=== PATIENT | male | born 1995 | race Caucasian/White ===

== ENCOUNTER 2018-10-11 08:06 | Emergency (ER) | payer MEDICAID ==
[~2018-10-11] VITALS: Ht 182.9 cm; Wt 68.4 kg
[~2018-10-11 08:06] MED LIST: ALBU8HFA PO; CEPH500C5 PO
[2018-10-11 08:10] VITALS: BP 125/71
[2018-10-11] MEDS ORDERED: triamcinolone acetonide 40mg/ml inj IM ONE (08:55)
[2018-10-11] MEDS ORDERED: diphenhydrAMINE 25mg capsule PO ONE (08:55)
[2018-10-11] MEDS ORDERED: DIPH25CA83 PO (09:10)
[2018-10-11] MEDS ORDERED: HYDR28CR14 TOP (09:10)
== END 2018-10-11 09:27 | disposition home or self-care (01) ==
LOC: ER 08:07
DX: R21 Rash and other nonspecific skin eruption (principal); F12.90 Cannabis use, unspecified, uncomplicated; Z59.0 Homelessness; Z56.0 Unemployment, unspecified; Z79.899 Other long term (current) drug therapy
CPT/HCPCS: 96372; 99283; J3301; Q0163

== ENCOUNTER 2018-10-23 09:49 | Emergency (ER) | payer MEDICAID ==
[~2018-10-23] VITALS: Ht 182.9 cm; Wt 68.2 kg
[~2018-10-23 09:49] MED LIST changes: +DIPH25CA83 PO; +HYDR28CR14 TOP
--- NOTE | 2018-10-23 10:06 | NUR ---
Patient presents to ED with multiple complaints, primarily "lymph node" swelling to right nipple, left groin, posterior right thigh, and swollen "lymph nodes" to bilateral sides of neck with onset of sore throat, patient states increase in lethargy and weakness x2 weeks.
[2018-10-23 10:42] VITALS: BP 121/77
== END 2018-10-23 10:44 | disposition home or self-care (01) ==
LOC: ER 09:49
DX: N63.10 Unspecified lump in the right breast, unspecified quadrant (principal); R59.0 Localized enlarged lymph nodes; F12.90 Cannabis use, unspecified, uncomplicated; Z56.0 Unemployment, unspecified; Z59.0 Homelessness; Z79.899 Other long term (current) drug therapy
CPT/HCPCS: 99281

== ENCOUNTER 2019-05-16 16:17 | Emergency (ER) | payer MEDICAID ==
[~2019-05-16] VITALS: Ht 177.8 cm; Wt 70.9 kg
[2019-05-16 16:28] VITALS: BP 117/68
[2019-05-16] MEDS ORDERED: triamcinolone acetonide 40mg/ml inj IM ONE (16:40)
== END 2019-05-16 16:53 | disposition home or self-care (01) ==
LOC: ER 16:18
DX: L23.7 Allergic contact dermatitis due to plants, except food (principal); F12.90 Cannabis use, unspecified, uncomplicated; Z59.0 Homelessness; Z56.0 Unemployment, unspecified; Z79.2 Long term (current) use of antibiotics; Z79.899 Other long term (current) drug therapy
CPT/HCPCS: 96372; 99283; J3301

== ENCOUNTER 2019-09-02 03:38 | Emergency (ER) | payer MEDICAID ==
[~2019-09-02] VITALS: Ht 177.8 cm; Wt 70.5 kg
[2019-09-02] MEDS ORDERED: LORazepam 2 mg/ml vial IM ONE (03:40)
[2019-09-02] MEDS ORDERED: haloperidol lactate 5mg/ml inj IM ONE (03:40)
[2019-09-02] MEDS ORDERED: diphenhydrAMINE 50 mg/ml inj IM ONE (03:40)
[2019-09-02] MEDS ORDERED: normal saline 1000ML IV soln IVB ONE (04:00)
[2019-09-02 04:37] LABS: BASOPHILS % (AUTO) 0.1 % (0-1); EOSINOPHILS # (AUTO) 0.2 X10'3 (0-0.9); EOSINOPHILS % (AUTO) 1.7 % (0-6); HEMATOCRIT 36.7 % (42.0-52.0); HEMOGLOBIN 11.8 g/dl (14.0-17.9); LYMPHOCYTES # (AUTO) 1.5 X10'3 (1.1-4.8); LYMPHOCYTES % (AUTO) 11.5 % (21-51); MEAN CORPUSCULAR HEMOGLOBIN 28.2 PG (27.0-31.0); MEAN CORPUSCULAR HGB CONC 32.3 g/dL (33.0-36.5); MEAN CORPUSCULAR VOLUME 87.4 FL (78-98); MEAN PLATELET VOLUME 8.4 FL (7.4-10.4); MONOCYTES # (AUTO) 0.8 X10'3 (0-0.9); MONOCYTES % (AUTO) 6.4 % (2-12); NEUTROPHILS # (AUTO) 10.6 X10'3 (1.8-7.7); NEUTROPHILS % (AUTO) 80.3 % (42-75); PLATELET COUNT 252 X10'3 (140-440); RED CELL DISTRIBUTION WIDTH 13.2 % (11.5-14.5); WHITE BLOOD COUNT 13.2 X10'3 (4.5-11.0)
[2019-09-02 04:45] LABS: URINE AMPHETAMINE SCREEN POSITIVE (Neg); URINE BARBITUATE SCREEN NEGATIVE (Neg); URINE BENZODIAZEPINES SCREEN NEGATIVE (Neg); URINE CANNABINOID SCREEN NEGATIVE (Neg); URINE COCAINE SCREEN NEGATIVE (Neg); URINE METHADONE SCREEN NEGATIVE (Neg); URINE OPIATE SCREEN POSITIVE (Neg); URINE PHENCYCLIDINE SCREEN NEGATIVE (Neg)
[2019-09-02 04:47] LABS: ALANINE AMINOTRANSFERASE 27 U/L (12-78); ALBUMIN 3.4 G/DL (3.4-5.0); ALBUMIN/GLOBULIN RATIO 1.1 (1.1-1.5); ALKALINE PHOSPHATASE 69 IU/L (46-116); ANION GAP 11 (8-16); ASPARTATE AMINO TRANSFERASE 32 U/L (10-37); BILIRUBIN,TOTAL 0.3 MG/DL (0.1-1.0); BLOOD UREA NITROGEN 20 MG/DL (7-18); BUN/CREATININE RATIO 15.5 (5.4-32.0); CALCIUM 8.3 MG/DL (8.5-10.1); CHLORIDE 108 MMOL/L (99-107); CREATININE 1.29 MG/DL (0.60-1.10); GLUCOSE 155 MG/DL (70-104); POTASSIUM 3.2 MMOL/L (3.5-5.1); SODIUM 143 MMOL/L (135-145); TOTAL CARBON DIOXIDE 24.2 MMOL/L (24-32); TOTAL PROTEIN 6.4 G/DL (6.4-8.2); eGFR 68 ML/MIN
[2019-09-02 04:49] LABS: CREATINE KINASE 640 U/L (39-308); ETHANOL < 0.010 GM/DL (0.0-0.010)
[2019-09-02] MEDS ORDERED: normal saline 1000ml 1,000 ML IV ONE (04:55)
--- NOTE | 2019-09-02 06:50 | NUR ---
Pt currently soundly sleeping, respirations remain even and unlabored and in no observable distress.
--- NOTE | 2019-09-02 09:45 | NUR ---
Attempted to wake pt up. Pt unwilling to answer questions and takes blanket and covers head as pt wanting to go back to sleep.
--- NOTE | 2019-09-02 11:25 | NUR ---
PT IS AWAKE, ALERT AND ORIENTED X3, "I AM READY TO GO HOME", CALLED GEOVANNY, MOTHER, AT [phone], SHE WILL BE HERE IN FEW MINUTES TO PICK PT UP FROM [facility]
--- NOTE | 2019-09-02 11:37 | NUR ---
PT OUT TO LOBBY IN WHEELCHAIR, ABLE TO AMB WITHOUT ASSIST, GAIT SLIGHTLY UNSTEADY, GAVE PT SHIRT
[2019-09-02 11:38] VITALS: BP 137/65
== END 2019-09-02 11:42 | disposition home or self-care (01) ==
LOC: ER 03:39
DX: R00.0 Tachycardia, unspecified (principal); T50.905A Adverse effect of unspecified drugs, medicaments and biological substances, initial encounter; R41.82 Altered mental status, unspecified; F12.90 Cannabis use, unspecified, uncomplicated; F15.90 Other stimulant use, unspecified, uncomplicated; Z59.0 Homelessness; Z56.0 Unemployment, unspecified; Z79.2 Long term (current) use of antibiotics; Z79.899 Other long term (current) drug therapy; Y92.89 Other specified places as the place of occurrence of the external cause
CPT/HCPCS: 36415; 80053; 80305; 80320; 82550; 85025; 96360; 96372; 99285; J1200; J1630; J2060; J7030

== ENCOUNTER 2019-12-25 15:11 | Emergency (ER) | payer MEDICAID ==
[~2019-12-25] VITALS: Ht 175.3 cm; Wt 63.6 kg
[~2019-12-25 15:11] MED LIST changes: -CEPH500C5 PO
[2019-12-25 15:25] VITALS: BP 125/80
== END 2019-12-25 17:57 | disposition home or self-care (01) ==
LOC: ER 15:11
DX: S70.211A Abrasion, right hip, initial encounter (principal); S80.211A Abrasion, right knee, initial encounter; S90.811A Abrasion, right foot, initial encounter; S40.812A Abrasion of left upper arm, initial encounter; S40.811A Abrasion of right upper arm, initial encounter; S80.812A Abrasion, left lower leg, initial encounter; S80.811A Abrasion, right lower leg, initial encounter; F12.90 Cannabis use, unspecified, uncomplicated; F15.90 Other stimulant use, unspecified, uncomplicated; R21 Rash and other nonspecific skin eruption; Z59.0 Homelessness; Z56.0 Unemployment, unspecified; Z79.899 Other long term (current) drug therapy; V29.88XA Motorcycle rider (driver) (passenger) injured in other specified transport accidents, initial encounter; Y93.89 Activity, other specified; Y92.488 Other paved roadways as the place of occurrence of the external cause; Y99.8 Other external cause status
CPT/HCPCS: 73110; 73610; 99284

== ENCOUNTER 2020-08-09 16:31 | Emergency (ER) | payer MEDICAID ==
[~2020-08-09] VITALS: Ht 180.3 cm; Wt 70.5 kg
[2020-08-09 16:37] VITALS: BP 116/67
[2020-08-09] MEDS ORDERED: SULF1TAB49 PO (17:34)
[2020-08-09] MEDS ORDERED: TETanus/Pertussis (Acell)/Diphther VAC/PF (Tdap-Adult) 0.5ml syringe IMVAC ONE (17:35)
[2020-08-09] MEDS ORDERED: acetaminophen 325mg tablet PO ONE (17:35)
[2020-08-09] MEDS ORDERED: sulfamethoxazole/trimethoprim DS (800/160mg) tablet PO ONE (17:35)
== END 2020-08-09 18:00 | disposition home or self-care (01) ==
LOC: ER 16:31
DX: L03.115 Cellulitis of right lower limb (principal); Z59.0 Homelessness; Z56.0 Unemployment, unspecified; F12.10 Cannabis abuse, uncomplicated; F15.10 Other stimulant abuse, uncomplicated
CPT/HCPCS: 99283

== ENCOUNTER 2020-09-20 10:39 | Emergency (ER) | payer MEDICAID ==
[~2020-09-20] VITALS: Ht 180.3 cm; Wt 69.8 kg
[2020-09-20 11:09] VITALS: BP 103/45
--- NOTE | 2020-09-20 13:58 | NUR ---
PT CALLED REGARDING RAPID STREP RESULTS, NO ANSWER, MESSAGE LEFT
== END 2020-09-20 12:21 | disposition home or self-care (01) ==
LOC: ER 10:40
DX: J02.9 Acute pharyngitis, unspecified (principal); Z20.822 Contact with and (suspected) exposure to COVID-19; M54.2 Cervicalgia; H92.01 Otalgia, right ear; F17.200 Nicotine dependence, unspecified, uncomplicated; F12.90 Cannabis use, unspecified, uncomplicated; Z56.0 Unemployment, unspecified; Z59.0 Homelessness; Z79.899 Other long term (current) drug therapy
CPT/HCPCS: 87077; 87081; 87635; 87880; 99283; C9803

== ENCOUNTER 2020-09-23 00:04 | Emergency (ER) | payer MEDICAID ==
[~2020-09-23] VITALS: Ht 180.3 cm; Wt 68.4 kg
[2020-09-23 00:13] VITALS: BP 118/67
== END 2020-09-23 02:40 | disposition left against medical advice (07) ==
LOC: ER 00:05
DX: L03.314 Cellulitis of groin (principal); Z53.21 Procedure and treatment not carried out due to patient leaving prior to being seen by health care provider

== ENCOUNTER 2022-09-10 10:23 | Emergency (ER) | payer MEDICAID ==
[~2022-09-10] VITALS: Ht 180.3 cm; Wt 64.0 kg
[2022-09-10 10:51] VITALS: BP 124/71
[2022-09-10] MEDS ORDERED: IBUP-1986 PO (11:25)
[2022-09-10] MEDS ORDERED: ketorolac trometh. 30mg/ml inj. IM ONE (11:30)
== END 2022-09-10 12:28 | disposition home or self-care (01) ==
LOC: ER 10:24
DX: M25.511 Pain in right shoulder (principal); Z79.899 Other long term (current) drug therapy; X58.XXXA Exposure to other specified factors, initial encounter; Y93.89 Activity, other specified; Y92.89 Other specified places as the place of occurrence of the external cause; Y99.8 Other external cause status
CPT/HCPCS: 96372; 99283; J1885

== ENCOUNTER 2024-08-03 17:48 | Emergency (ER) | payer MEDICAID ==
[~2024-08-03] VITALS: Ht 180.3 cm; Wt 61.0 kg
[~2024-08-03 17:48] MED LIST changes: +IBUP-1986 PO
[2024-08-03] MEDS ORDERED: AMOX-117 PO (19:47)
--- NOTE | 2024-08-03 19:48 | Physician Documentation ---
History of Present Illness ~ Chief Complaint: Ear Pain Stated Complaint: "I HAVE AN EAR INFECTION" Time Seen by MD: 19:25 OK to notify your PCP?: Yes Source: patient Mode of Arrival: POV Exam Limitations: no limitations HPI Vel is a 29 year old male who reports having right ear pain for the past 3 days along with a cough and runny nose. He has been exposed to strep throat as well. He has not taken any medications at home for his symptoms. Drainage from the ear or fevers. Medication Reconciliation Allergies: Coded Allergies: No Known Allergies (Unverified , 08/03/24) Scheduled Amox Tr/Potassium Clavulanate (Augmentin 875-125 Tablet), 1 TAB PO Q12H Physical Exam Vital Signs: RN Vital Signs have been reviewed: Yes, Temperature: 98.3, Source: Temporal, Heart Rate: 88, Respiratory Rate: 15, BP: 130/58, Pulse Oximetry: 99, Weight: 61.050 Pulse Oximetry Reflects: adequate oxygenation Physical Exam General: Alert, no apparent distress. HEENT: PERRL, EOMI, no injection, moist mucous membranes. No erythema to posterior pharynx. No exudate on tonsils. Erythema and bulging TM and right ear. Left ear normal. Neck: Full range of motion. Respiratory: Lungs clear, no respiratory distress. Chest: No accessory muscle use. Cardiovascular: Regular rate and rhythm, no murmurs. Gastrointestinal: Soft, nontender, nondistended. Bowels sounds present. Extremities: Normal range of motion, no deformity. Neurologic: Oriented x4. Psychiatric: Normal mood and affect. Skin: Normal color, warm and dry. No edema, no ecchymosis. Progress Results/Orders Reviewed/noted all lab results: Yes Results/Orders Completed Orders - MARY KAY NICHOLS [employer] Amox Tr/Potassium Clavulanate (Augmentin (08/03/24 19:50) Medications Received in ER Medications (Trade) Dose Ordered Sig/Teresita Route PRN Reason Start Time Stop Time Status Last Admin Dose Admin (Augmentin 875-125mg tablet) 1 tab ONCE ONCE PO 08/03/24 19:50 08/03/24 19:51 DC 08/03/24 19:56 1 TAB Vital Signs 08/03/24 08/03/24 17:57 20:03 Temp 98.3 98.8 Pulse 88 78 Resp 15 16 B/P (MAP) 130/58 126/86 Pulse Ox 99 99 Medical Decision Making Findings Vel is a 29-year-old male with right ear pain for the past 3 days. She has been exposed to strep throat. His physical exam reveals otitis media of the right ear. I have prescribed Augmentin for 7 days. He has been educated to iso late away from the individual in the household that has strep throat. He should follow up with his primary care provider in the next 3 days and return back here for any new or worsening symptoms Ear Diff. Dx: Considerations: Include: Cerumen impaction, Foreign body, Otitis externa, Perforation, Tympanic Membrane Injury Departure Disposition: HOME / SELF CARE / HOMELESS Impression: Primary Impression: Otitis media Condition: Stable Discharge Instructions: Otitis Media, Adult, [id number] Additional Instructions: Please take all antibiotics as prescribed. Follow up with her primary care provider next 3 days. Return back here for any new or worsening symptoms Referrals: NO PRIMARY CARE PROVIDER (PCP) Prescriptions Amox Tr/Potassium Clavulanate (Augmentin 875-125 Tablet) 1 Each Tablet 1 TAB PO Q12H for 7 Days, #14 TAB Prov: MARY KAY NICHOLS 08/03/24 Education Educated: Patient Educated regarding: diagnosis, treatment, prognosis, need for follow up Signature Scribe Signature: . Attestation: Scribed for Mary Kay Nichols by Mary Kay Nichols - FABIO . 08/03/24 20:16 MARY KAY NICHOLS August 03, 2024 19:48
[2024-08-03] MEDS: amox tr/potassium clavulanate 875/125mg TAB PO ONE (19:56)
[2024-08-03 20:03] VITALS: BP 126/86; PULSE 78; RESP 16; TEMP 98.8; O2SAT 99
== END 2024-08-03 20:04 | disposition home or self-care (01) ==
LOC: ER 17:49 → MERGE 17:49 → ER 20:04
DX: H66.91 Otitis media, unspecified, right ear (principal)
CPT/HCPCS: 99283